=== PATIENT | female | born 1965 | race Caucasian/White ===

== ENCOUNTER → 2017-02-14 | Outpatient (CLI) | payer BC | LOC: FIMAGING 13:49 | PROVIDERS: ATTEND Obstetrics & Gynecology | DX: D25.9 Leiomyoma of uterus, unspecified (principal); N88.8 Other specified noninflammatory disorders of cervix uteri ==

== ENCOUNTER → 2017-07-02 | Outpatient (CLI) | payer BC | LOC: CIMAGING 11:59 | PROVIDERS: ATTEND Podiatrist | DX: M25.775 Osteophyte, left foot (principal); S92.412A Displaced fracture of proximal phalanx of left great toe, initial encounter for closed fracture; S90.32XA Contusion of left foot, initial encounter | CPT/HCPCS: 73630-PO ==

== ENCOUNTER → 2017-08-29 | Outpatient (CLI) | payer BC | LOC: FIMAGING 09:17 | PROVIDERS: ATTEND Internal Medicine | DX: Z12.31 Encounter for screening mammogram for malignant neoplasm of breast (principal) | CPT/HCPCS: G0202 ==